=== PATIENT | male | born 1930 | race Caucasian/White ===

== ENCOUNTER 2016-04-06 16:30 | Emergency (ER) | payer MEDICARE, OTHER ==
[2016-04-06 16:42] VITALS: BP 154/90
[2016-04-06] MEDS ORDERED: NS 0.9% 1000 ML* 1,000 ML IV SCH (17:15)
[2016-04-06 17:28] LABS: Hematocrit 33 % (42-52); Mean Corpuscular HGB Conc 33 g/dl (31-36); Mean Corpuscular Hemoglobin 33 pg (27-31); Mean Corpuscular Volume 99 fL (80-94); Mean Platelet Volume 8 um3 (7.4-10.4); Red Blood Count 3.34 10^6/ul (4.0-5.4); Red Cell Distribution Width 16 % (10.5-15); White Blood Count 4.2 10^3/ul (3.5-10.8)
--- NOTE | 2016-04-06 17:45 | RAD ---
Indication: Fall with loss of consciousness, head injury. CT of the brain was performed without IV contrast. Comparison is made with previous exam dated October 30, 2013. Ventricular structures are midline. No midline shift is noted. Central and cortical atrophy is noted. There is no evidence of intracranial mass or hemorrhage. No other high or low density lesions are identified. The bony calvaria demonstrates mastoid air cells and paranasal sinuses to be unremarkable. Scalp hematoma is noted over the right frontal area. IMPRESSION: NO INTRACRANIAL MASS OR HEMORRHAGE IS NOTED.??RIGHT FRONTAL SCALP HEMATOMA IS NOTED. NO UNDERLYING BONY FRACTURE IS NOTED.??
[2016-04-06 17:55] LABS: Albumin 3.9 g/dL (3.2-5.2); BUN/Creatinine Ratio 36.5 (8-20); C Reactive Protein 8.55 mg/L (< 5.00); EGFR African American 109.7 (>60); EGFR Non-African American 85.3 (>60); Globulin 2.7 g/dL (2-4); Magnesium 2.1 mg/dL (1.9-2.7); Potassium 4.4 mmol/L (3.5-5.0); Total Bilirubin 0.4 mg/dL (0.2-1.0); Total Protein 6.6 g/dL (6.4-8.9); Troponin I 0.04 ng/mL (<0.04)
--- NOTE | 2016-04-06 18:02 | RAD ---
Indication: Neck pain, fall with neck injury. CT of the cervical spine was obtained in the axial plane. Sagittal and coronal reconstructed images were obtained. The skull base demonstrates no fracture. Mastoid air cells are well aerated. C1 ring is intact. There is no evidence of fracture. There are degenerative changes of the atlantoaxial joint. At C2-C3 spondylitic ridge flattens the thecal sac. Right uncovertebral joint hypertrophy narrows the right foramen. Moderate degree of facet arthropathy is noted. At C3-C4 there is degenerative disc disease noted. Spondylitic ridge flattens the thecal sac. There is right uncovertebral joint hypertrophy with right facet arthropathy resulting in severe foraminal stenosis at the right C3-C4 level. At C4-C5 there is degenerative disc disease with minimal spondylitic ridge. Again noted is right uncovertebral joint hypertrophy with right facet arthropathy resulting in moderate to severe right foraminal stenosis. At C5-C6 spondylitic ridge flattens the thecal sac. Facet arthropathy is noted. No central foraminal stenosis is noted. At C6-C7 spondylitic ridge with facet arthropathy is noted. No foraminal stenosis is noted. At C7-T1 no disc protrusion is identified. Moderate degree of facet arthropathy is noted. Bridging syndesmophytes are noted C4-C5, C5-C6, C6-C7 and C7-T1. The lung apices are otherwise unremarkable. IMPRESSION: MULTILEVEL DEGENERATIVE DISC DISEASE OF THE CERVICAL SPINE. RIGHT FORAMINAL STENOSIS IS NOTED AT C2-C3, C3-C4 DUE TO UNCOVERTEBRAL JOINT HYPERTROPHY AND MARKED RIGHT SIDED FACET ARTHROPATHY AT THESE LEVELS. BRIDGING SYNDESMOPHYTES ARE NOTED FROM C4-C5, C5-C6, C6-C7 AND C7-T1.
--- NOTE | 2016-04-06 18:07 | RAD ---
Indication: Elbow injury. 4 views of the elbow demonstrates marked soft tissue swelling in the medial aspect of the elbow joint. There is a joint effusion noted. There is likely a avulsion from the left are not process. Adjacent bony fragment is noted along the lateral epicondyles as well. IMPRESSION: MARKED SOFT TISSUE SWELLING MEDIALLY AT THE ELBOW JOINT. A JOINT EFFUSION IS NOTED WITH ANTERIOR FAT PAD SIGN. THERE IS LIKELY AVULSION FROM THE OLECRANON PROCESS.
--- NOTE | 2016-04-06 18:08 | RAD ---
Indication: Fall, chest injury. 2 views of the chest demonstrates patient to be status post transsternal thoracotomy. There is cardiomegaly noted. Hyperinflated lung everett are noted. No definite pneumonia is identified. IMPRESSION: No active cardiopulmonary disease is noted. No changes noted since March 06, 2015.
[2016-04-06 18:12] LABS: TSH (Thyroid Stimulating Horm) 1.4 mcIU/mL (0.34-5.60)
--- NOTE | 2016-04-06 20:19 | ED ---
Eufemia To Anna, scribed for Yair Duffy MD on 04/06/16 at 1730 . Syncope/Near Syncope - HPI Summary HPI Summary: Patient is an 85 y/o male BIBA to [facility] following the sudden onset of a syncopal episode that occurred at 16:00 today. The patient was walking into his orthopedic doctor's office and fell flat on his face onto a hard floor. He didn t trip. He remembers waking but not falling. LOC was 30 seconds. He was alert upon arrival of EMS. He has bruising and a laceration on his forehead and pain in his right elbow. He reports no other pain. Denies palpitations. He has been experiencing tightness in his chest every day for years. Hx of triple bypass surgery. He has had insomnia lately and hasnt been sleeping much. Some of his medications have side effects of lightheadedness and dizziness. He had a glass of wine to drink today but hasnt had anything else. He is not on blood thinners besides ibuprofen. Hx is significant for CHF. He typically uses a walker to ambulate. - History Of Current Complaint Chief Complaint: EDSyncope Time Seen by Provider: 04/06/16 16:47 Hx Obtained From: Patient, Family/Organizational Effectiveness Consultant - accompanied by , EMS Onset/Duration: Sudden Onset, Resolved Timing: Seconds Context: Witnessed Activity At Onset: Other - walking Associated Head Trauma: No Alleviating Factor(s): Spontaneous Resolution - Allergies/Home Medications Allergies/Adverse Reactions: Allergies Allergy/AdvReac Type Severity Reaction Status Date / Time Penicillins AdvReac Intermediate Rash Verified 10/03/15 09:35 PMH/Surg Hx/FS Hx/Imm Hx Previously Healthy: No Endocrine/Hematology History: Reports: Hx Anemia, Hx Unexplained Bleeding Denies: Hx Anticoagulant Therapy, Hx Diabetes, Hx Thyroid Disease Cardiovascular History: Reports: Hx Angina, Hx Congestive Heart Failure, Hx Coronary Artery Disease, Hx Deep Vein Thrombosis - right leg, Hx Hypercholesterolemia, Hx Hypertension, Hx Syncope, Hx Valvular Heart Disease, Other Cardiovascular Problems/Disorders - Coronary Bypass Surgery Denies: Hx Myocardial Infarction, Hx Pacemaker/ICD Respiratory History: Reports: Hx Asthma, Hx Sleep Apnea, Other Respiratory Problems/Disorders - Deviated Septum GI History: Denies: Hx Gall Bladder Disease, Hx Gastrointestinal Bleed, Hx Ulcer, Hx Urosepsis History: Reports: Hx Acute Renal Failure - current dx, Hx Benign Prostatic Hyperplasia Denies: Hx Kidney Stones, Hx Renal Disease Musculoskeletal History: Reports: Hx Arthritis, Hx Back Problems Sensory History: Reports: Hx Cataracts - HAS HAD SURGERY, Hx Contacts or Glasses , Hx Glaucoma - RIGHT EYE, Hx Deafness - left ear, Hx Hearing Aid - RIGHT EAR, Hx Hearing Problem Opthamlomology History: Reports: Hx Cataracts - HAS HAD SURGERY, Hx Contacts or Glasses, Hx Glaucoma - RIGHT EYE Neurological History: Reports: Hx Seizures - only had one in 1974, 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, Hx Transient Ischemic Attacks (TIA), Other Neuro Impairments/Disorders - intracranial tumor Psychiatric History: Reports: Hx Depression Denies: Hx Panic Disorder - Cancer History Cancer Type, Location and Year: Prostate cancer - Surgical History Surgery Procedure, Year, and Place: Septoplasty, Cataract, 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, Spinal Surgery, Tongue Cancer, Skin Cancer on Forehead , Coronary Bypass Surgery 2007, bilateral hips - Immunization History Date of Tetanus Vaccine: unk Infectious Disease History: No Infectious Disease History: Denies: Traveled Outside the [place] in Last 30 Days - Family History Known Family History: Positive: Other - Hx manic depression in father - Social History Occupation: Retired Lives: With Family Alcohol Use: Daily Hx Substance Use: No Substance Use Type: Reports: None Smoking Status (MU): Former Smoker Type: Cigarettes Have You Smoked in the Last Year: No Review of Systems Positive: Other - recent insomnia Positive: Chest Pain. Negative: Palpitations Positive: Bruising, Other - laceration Positive: Syncope All Other Systems Reviewed And Are Negative: Yes Physical Exam Triage Information Reviewed: Yes Vital Signs On Initial Exam: Initial Vitals Temp Pulse Resp BP Pulse Ox 98.2 F 65 14 154/90 96 04/06/16 16:39 04/06/16 16:39 04/06/16 16:39 04/06/16 16:39 04/06/16 16:39 Vital Signs Reviewed: Yes Appearance: Positive: Well-Appearing, No Pain Distress Skin: Positive: Warm, Skin Color Reflects Adequate Perfusion, Dry, Other - Laceration above right eye that extends across the bridge of his nose. Ecchymosis across bridge of nose and on right elbow. Skin turgor abnormal. Head/Face: Positive: Normal Head/Face Inspection Eyes: Positive: EOMI, TRAY ENT: Positive: Other - Dry mucous membranes Neck: Positive: Supple, Nontender, No Lymphadenopathy Respiratory/Lung Sounds: Positive: Decreased Breath Sounds - Right lower lung Cardiovascular: Positive: RRR Abdomen Description: Positive: Nontender, Soft Bowel Sounds: Positive: Present Male Genital Exam: Positive: other - Catheter Musculoskeletal: Positive: Normal, Strength/ROM Intact Neurological: Positive: Normal, Sensory/Motor Intact, Alert, Oriented to Person Place, Time Psychiatric: Positive: Affect/Mood Appropriate Procedures - Laceration/Wound Repair 1 Location: head Description: Linear Anesthesia: Local, Lido, Epi Length, Depth and Shape: 3 cm length, .5 cm depth, .2 cm width Betadine Prep?: Yes Irrigated w/ Saline (ccs): 100 Laceration/Wound Explored: clean Closure: Single Layer Suture Type: Prolene - 5.0 Number of Sutures: 5 Layer Closure?: No Sterile Dressing Applied?: Yes Diagnostics - Vital Signs Vital Signs Temp Pulse Resp BP Pulse Ox 04/06/16 16:39 98.2 F 65 14 154/90 96 - Laboratory Lab Results: Lab Results 04/06/16 04/06/16 04/06/16 Range/Units 17:00 17:00 17:00 WBC 4.2 (3.5-10.8) 10^3/ul RBC 3.34 L (4.0-5.4) 10^6/ul Hgb 11.0 L (14.0-18.0) g/dl Hct 33 L (42-52) % MCV 99 H (80-94) fL MCH 33 H (27-31) pg MCHC 33 (31-36) g/dl RDW 16 H (10.5-15) % Plt Count 130 L (150-450) 10^3/ul MPV 8 (7.4-10.4) um3 Neut % (Auto) 70.6 (38-83) % Lymph % (Auto) 16.4 L (25-47) % Summers % (Auto) 10.5 H (1-9) % Eos % (Auto) 2.0 (0-6) % Baso % (Auto) 0.5 (0-2) % Absolute Neuts (auto) 3.0 (1.5-7.7) 10^3/ul Absolute Lymphs (auto) 0.7 L (1.0-4.8) 10^3/ul Absolute Monos (auto) 0.4 (0-0.8) 10^3/ul Absolute Eos (auto) 0.1 (0-0.6) 10^3/ul Absolute Basos (auto) 0 (0-0.2) 10^3/ul Absolute Nucleated RBC 0.01 10^3/ul Nucleated RBC % 0.1 INR (Anticoag Therapy) 1.00 (0.89-1.11) APTT 26.3 (26.0-36.3) seconds Sodium 135 (133-145) mmol/L Potassium 4.4 (3.5-5.0) mmol/L Chloride 101 (101-111) mmol/L Carbon Dioxide 28 (22-32) mmol/L Anion Gap 6 (2-11) mmol/L BUN 31 H (6-24) mg/dL Creatinine 0.85 (0.67-1.17) mg/dL Est GFR ( Amer) 109.7 (>60) Est GFR (Non-Af Amer) 85.3 (>60) BUN/Creatinine Ratio 36.5 H (8-20) Glucose 116 H (70-100) mg/dL Lactic Acid (0.5-2.0) mmol/L Calcium 9.0 (8.6-10.3) mg/dL Magnesium 2.1 (1.9-2.7) mg/dL Total Bilirubin 0.40 (0.2-1.0) mg/dL AST 24 (13-39) U/L ALT 18 (7-52) U/L Alkaline Phosphatase 182 H (34-104) U/L Total Creatine Kinase 88 (10-223) U/L CK-MB (CK-2) 3.3 (0.6-6.3) ng/mL Troponin I 0.04 H* (<0.04) ng/mL C-Reactive Protein 8.55 H (< 5.00) mg/L B-Natriuretic Peptide ( - 100) pg/mL Total Protein 6.6 (6.4-8.9) g/dL Albumin 3.9 (3.2-5.2) g/dL Globulin 2.7 (2-4) g/dL Albumin/Globulin Ratio 1.4 (1-3) TSH 1.40 (0.34-5.60) mcIU/mL 04/06/16 04/06/16 Range/Units 17:00 17:00 WBC (3.5-10.8) 10^3/ul RBC (4.0-5.4) 10^6/ul Hgb (14.0-18.0) g/dl Hct (42-52) % MCV (80-94) fL MCH (27-31) pg MCHC (31-36) g/dl RDW (10.5-15) % Plt Count (150-450) 10^3/ul MPV (7.4-10.4) um3 Neut % (Auto) (38-83) % Lymph % (Auto) (25-47) % Summers % (Auto) (1-9) % Eos % (Auto) (0-6) % Baso % (Auto) (0-2) % Absolute Neuts (auto) (1.5-7.7) 10^3/ul Absolute Lymphs (auto) (1.0-4.8) 10^3/ul Absolute Monos (auto) (0-0.8) 10^3/ul Absolute Eos (auto) (0-0.6) 10^3/ul Absolute Basos (auto) (0-0.2) 10^3/ul Absolute Nucleated RBC 10^3/ul Nucleated RBC % INR (Anticoag Therapy) (0.89-1.11) APTT (26.0-36.3) seconds Sodium (133-145) mmol/L Potassium (3.5-5.0) mmol/L Chloride (101-111) mmol/L Carbon Dioxide (22-32) mmol/L Anion Gap (2-11) mmol/L BUN (6-24) mg/dL Creatinine (0.67-1.17) mg/dL Est GFR ( Amer) (>60) Est GFR (Non-Af Amer) (>60) BUN/Creatinine Ratio (8-20) Glucose (70-100) mg/dL Lactic Acid 1.0 (0.5-2.0) mmol/L Calcium (8.6-10.3) mg/dL Magnesium (1.9-2.7) mg/dL Total Bilirubin (0.2-1.0) mg/dL AST (13-39) U/L ALT (7-52) U/L Alkaline Phosphatase (34-104) U/L Total Creatine Kinase (10-223) U/L CK-MB (CK-2) (0.6-6.3) ng/mL Troponin I (<0.04) ng/mL C-Reactive Protein (< 5.00) mg/L B-Natriuretic Peptide 434 H ( - 100) pg/mL Total Protein (6.4-8.9) g/dL Albumin (3.2-5.2) g/dL Globulin (2-4) g/dL Albumin/Globulin Ratio (1-3) TSH (0.34-5.60) mcIU/mL Result Diagrams: 04/06/16 17:00 04/06/16 17:00 Lab Statement: Any lab studies that have been ordered have been reviewed, and results considered in the medical decision making process. - Radiology Elbow XR Xray Interpretation: Positive (See Comments) Radiology Interpretation Completed By: Radiologist - IMPRESSION: MARKED SOFT TISSUE SWELLING MEDIALLY AT THE ELBOW JOINT. A JOINT EFFUSION IS NOTED WITH ANTERIOR FAT PAD SIGN. THERE IS LIKELY AVULSION FROM THE OLECRANON PROCESS. CXR Xray Interpretation: No Acute Changes Radiology Interpretation Completed By: Radiologist - IMPRESSION: No active cardiopulmonary disease is noted. No changes noted since March 06, 2015. - CT C-Spine CT CT Interpretation: Positive (See Comments) CT Interpretation Completed By: Radiologist - IMPRESSION: MULTILEVEL DEGENERATIVE DISC DISEASE OF THE CERVICAL SPINE. RIGHT FORAMINAL STENOSIS IS NOTED AT C2-C3, C3-C4 DUE TO UNCOVERTEBRAL JOINT HYPERTROPHY AND MARKED RIGHT SIDED FACET ARTHROPATHY AT THESE LEVELS. BRIDGING SYNDESMOPHYTES ARE NOTED FROM C4-C5, C5-C6, C6-C7 AND C7-T1. Brain CT CT Interpretation: Positive (See Comments) CT Interpretation Completed By: Radiologist - IMPRESSION: NO INTRACRANIAL MASS OR HEMORRHAGE IS NOTED. RIGHT FRONTAL SCALP HEMATOMA IS NOTED. NO UNDERLYING BONY FRACTURE IS NOTED. - EKG 19:14 Cardiac Rate: NL - 80 bpm EKG Rhythm: Sinus Rhythm EKG Interpretation: L. atrial enlargement, ST depressions in V3-V6 also seen in 05/14/2015 EKG Course/Dx Assessment/Plan: FACIAL LACERATION SUTURED. PATIENT DENIED CHEST PAIN/SOB/ PALPITATIONS PRIOR TO SYNCOPAL EPISODE. RESULTS DISCUSSED WITH PATIENT/. PATIENT WISHES TO GO HOME. AMBULATED IN ED. DISCHARGE HOME STABLE. - Diagnoses Provider Diagnoses: Syncope, Head injury, Laceration of face, Elbow fracture Discharge - Discharge Plan Condition: Stable Disposition: HOME Patient Education Materials: Elbow Fracture in Adults (ED), Syncope (ED), How to Use a Sling (GEN), Head Injury (ED), Facial Laceration (ED) Referrals: [facility] [Outside] Juice Razo MD [Medical Doctor] - Kenan Botello MD [Primary Care Provider] - Additional Instructions: FOLLOW UP WITH YOUR DOCTOR FOR YOUR SYNCOPAL EPISODE. FOLLOW UP WITH ORTHOPEDICS FOR YOUR ELBOW INJURY. SUTURES OUT IN 5-7 DAYS. RETURN TO THE EMERGENCY DEPARTMENT FOR ANY WORSENING OF YOUR CONDITION OR QUESTIONS OR CONCERNS. The documentation as recorded by the Eufemia jiang Anna accurately reflects the service I personally performed and the decisions made by me, Yair Duffy MD.
== END 2016-04-06 20:35 | disposition home or self-care (01) ==
LOC: ED 16:30
DX: S09.90XA Unspecified injury of head, initial encounter (principal); S42.409A Unspecified fracture of lower end of unspecified humerus, initial encounter for closed fracture; S01.81XA Laceration without foreign body of other part of head, initial encounter; R42 Dizziness and giddiness; Z87.891 Personal history of nicotine dependence; R07.9 Chest pain, unspecified; R55 Syncope and collapse; W19.XXXA Unspecified fall, initial encounter; Y93.9 Activity, unspecified; Y92.9 Unspecified place or not applicable; Y99.9 Unspecified external cause status
CPT/HCPCS: 36415; 70450; 71020; 72125; 80053; 82550; 82553; 83605; 83735; 83880; 84443; 84484; 85025; 85610; 85730; 86140; 93005; 99282

== ENCOUNTER 2016-04-12 22:32 | Emergency (ER) | payer MEDICARE, OTHER ==
--- NOTE | 2016-04-13 01:40 | ED ---
Apollo To Adam, scribed for Yair Duffy MD on 04/13/16 at 0000 . Upper Extremity Pain - HPI Summary HPI Summary: Pt is an 85 year old male presenting with bleeding from the RUE since falling 1 week ago. Pt fractured his right elbow when he fell on 04/06 and he c/o continuing but gradually decreasing pain. He came to the ED tonight because his arm began bleeding in 2 places. He presents with edema and ecchymosis in the RUE and eschar in the LUE. Pt also c/o nasal congestion which is causing him to have difficulty breathing. PMHx of CHF. He takes ASA daily. - History of Current Complaint Chief Complaint: EDExtremityUpper Stated Complaint: SWOLLEN RT ARM Time Seen by Provider: 04/12/16 23:23 Hx Obtained From: Patient Mechanism Of Injury: Fall From A Standing Position Onset/Duration: Started Days Ago, Traumatic, Still Present Timing: Constant Severity Initially: Moderate Severity Currently: Moderate Pain Location: Elbow - Right Aggravating Factor(s): Movement Alleviating Factor(s): Nothing Associated Signs & Symptoms: Positive: Swelling, Bruising, SOB, Other - Bleeding from RUE - Allergies/Home Medications Allergies/Adverse Reactions: Allergies Allergy/AdvReac Type Severity Reaction Status Date / Time Penicillins AdvReac Intermediate Rash Verified 10/03/15 09:35 PMH/Surg Hx/FS Hx/Imm Hx Endocrine/Hematology History: Reports: Hx Anemia, Hx Unexplained Bleeding Denies: Hx Anticoagulant Therapy, Hx Diabetes, Hx Thyroid Disease Cardiovascular History: Reports: Hx Angina, Hx Congestive Heart Failure, Hx Coronary Artery Disease, Hx Deep Vein Thrombosis - right leg, Hx Hypercholesterolemia, Hx Hypertension, Hx Syncope, Hx Valvular Heart Disease, Other Cardiovascular Problems/Disorders - Coronary Bypass Surgery Denies: Hx Myocardial Infarction, Hx Pacemaker/ICD Respiratory History: Reports: Hx Asthma, Hx Sleep Apnea, Other Respiratory Problems/Disorders - Deviated Septum GI History: Denies: Hx Gall Bladder Disease, Hx Gastrointestinal Bleed, Hx Ulcer, Hx Urosepsis History: Reports: Hx Acute Renal Failure - current dx, Hx Benign Prostatic Hyperplasia Denies: Hx Kidney Stones, Hx Renal Disease Musculoskeletal History: Reports: Hx Arthritis, Hx Back Problems Sensory History: Reports: Hx Cataracts - HAS HAD SURGERY, Hx Contacts or Glasses , Hx Glaucoma - RIGHT EYE, Hx Deafness - left ear, Hx Hearing Aid - RIGHT EAR, Hx Hearing Problem Opthamlomology History: Reports: Hx Cataracts - HAS HAD SURGERY, Hx Contacts or Glasses, Hx Glaucoma - RIGHT EYE Neurological History: Reports: Hx Seizures - only had one in 1974, 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, Hx Transient Ischemic Attacks (TIA), Other Neuro Impairments/Disorders - intracranial tumor Psychiatric History: Reports: Hx Depression Denies: Hx Panic Disorder - Cancer History Cancer Type, Location and Year: Prostate cancer - Surgical History Surgery Procedure, Year, and Place: Septoplasty, Cataract, 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, Spinal Surgery, Tongue Cancer, Skin Cancer on Forehead , Coronary Bypass Surgery 2007, bilateral hips - Immunization History Date of Tetanus Vaccine: unk Infectious Disease History: No Infectious Disease History: Denies: Traveled Outside the [place] in Last 30 Days - Family History Known Family History: Positive: Other - Hx manic depression in father - Social History Occupation: Retired Lives: With Family - Alcohol Use: Daily Hx Substance Use: No Substance Use Type: Reports: None Hx Tobacco Use: Yes Smoking Status (MU): Former Smoker Type: Cigarettes Have You Smoked in the Last Year: No Review of Systems Positive: Nasal Discharge - Congestion Positive: Shortness Of Breath - Due to nasal congestion Positive: Arthralgia - Right elbow, Edema - RUE Positive: Bruising - RUE, Other - Bleeding from RUE in 2 places All Other Systems Reviewed And Are Negative: Yes Physical Exam Triage Information Reviewed: Yes Vital Signs On Initial Exam: Initial Vitals Temp Pulse Resp BP Pulse Ox 97.4 F 95 16 171/79 99 04/12/16 22:38 04/12/16 22:38 04/12/16 22:38 04/12/16 22:38 04/12/16 22:38 Vital Signs Reviewed: Yes Appearance: Positive: Well-Appearing, No Pain Distress Skin: Positive: Warm, Skin Color Reflects Adequate Perfusion, Dry, Other - Eschar on left arm. Ecchymosis of RUE. Head/Face: Positive: Normal Head/Face Inspection Eyes: Positive: EOMI, TRAY ENT: Positive: Normal ENT inspection Neck: Positive: Supple, Nontender Respiratory/Lung Sounds: Positive: Clear to Auscultation, Breath Sounds Present Cardiovascular: Positive: RRR Abdomen Description: Positive: Nontender, Soft Bowel Sounds: Positive: Present Musculoskeletal: Positive: Normal, Strength/ROM Intact, Edema Right - RUE Neurological: Positive: Normal, Sensory/Motor Intact, Alert, Oriented to Person Place, Time Psychiatric: Positive: Affect/Mood Appropriate Diagnostics - Vital Signs Vital Signs Temp Pulse Resp BP Pulse Ox 04/12/16 22:38 97.4 F 95 16 171/79 99 - Laboratory Lab Statement: Any lab studies that have been ordered have been reviewed, and results considered in the medical decision making process. - Additional Comments Diagnostic Additional Comments: Venous Doppler Study - Negative Re-Evaluation - Re-Evaluation First Eval Re-Evaluation Time: 01:36 - Discussed results of venous doppler study. Patient is doing well. He will be discharged. Course/Dx - Course Assessment/Plan: DISCUSSED RESULTS OF US WITH PATIENT/. PATIENT HAS BEEN USING HIS RIGHT ARM FOR AMBULTION. OTHERWISE HE HAS INCREASED RISK OF FALLING. PATIENT/ AGREED TO CALL ORTHOPEDICS FOR F/U TODAY. DISCHARGE HOME STABLE. - Diagnoses Provider Diagnoses: Arm edema, Elbow fracture Discharge - Discharge Plan Condition: Stable Disposition: HOME Patient Education Materials: Edema (ED), Elbow Fracture in Adults (ED) Referrals: Kenan Botello MD [Primary Care Provider] - Additional Instructions: FOLLOW UP WITH ORTHOPEDICS, DR MCGOWAN OR ONE OF HIS PARTNERS. KEEP YOUR RIGHT ARM ELEVATED MUCH POSSIBLE. RETURN TO THE EMERGENCY DEPARTMENT FOR ANY WORSENING OF YOUR CONDITION OR QUESTIONS OR CONCERNS. The documentation as recorded by the Apollo jiang Adam accurately reflects the service I personally performed and the decisions made by me, Yair Duffy MD.
[2016-04-13 02:26] VITALS: BP 144/62
--- NOTE | 2016-04-13 07:52 | RAD ---
INDICATION: Swelling right upper extremity. COMPARISON: There are no prior studies available for comparison. TECHNIQUE: Multiple real-time, color flow and Doppler tracings of the right upper extremity were obtained. FINDINGS: The axillary, brachial, basilic and cephalic veins all demonstrate normal compressibility, augmentation with compression and phasic response with respiration. The radial and ulnar arteries demonstrate normal compressibility. The subclavian and internal jugular veins also demonstrate normal color flow imaging and phasic response with respiration. There is soft tissue swelling noted in the antecubital fossa and forearm region. IMPRESSION: NO EVIDENCE FOR DEEP VENOUS THROMBOSIS.
== END 2016-04-13 02:22 | disposition home or self-care (01) ==
LOC: ED 22:32
DX: R60.9 Edema, unspecified (principal); S42.401A Unspecified fracture of lower end of right humerus, initial encounter for closed fracture; R09.81 Nasal congestion; I50.9 Heart failure, unspecified; Z79.82 Long term (current) use of aspirin; Z88.0 Allergy status to penicillin; Z86.73 Personal history of transient ischemic attack (TIA), and cerebral infarction without residual deficits; Z87.891 Personal history of nicotine dependence; W19.XXXA Unspecified fall, initial encounter; Y93.9 Activity, unspecified; Y92.9 Unspecified place or not applicable
CPT/HCPCS: 99282

== ENCOUNTER 2016-04-13 14:36 | Emergency (ER) | payer MEDICARE, OTHER ==
[2016-04-13 14:46] VITALS: BP 123/49
== END 2016-04-13 16:08 | disposition left against medical advice (07) ==
LOC: ED 14:36
DX: M79.89 Other specified soft tissue disorders (principal); Z53.21 Procedure and treatment not carried out due to patient leaving prior to being seen by health care provider

== ENCOUNTER → 2016-10-22 03:37 | Emergency (ER) | payer MEDICARE, OTHER ==
--- NOTE | 2016-10-22 04:48 | ED ---
Angeles To Alfonso, scribed for Alfonso Villareal on 10/22/16 at 0414 . Skin Complaint - HPI Summary HPI Summary: This patient is an 86 year old M BIBA to [facility] with a chief complaint of scalp bleeding since 0200 this morning. The bleeding began after application of his C- Pap mask in sleep. Pt rates the pain 0/10 in severity. Symptoms aggravated by application of his C-Pap mask and alleviated by nothing. Patient had a recent skin biopsy at the bleeding site. PMHx of prostate cancer, HTN, CAD, and CHF. - History of Current Complaint Chief Complaint: EDLacSutureRecheck Stated Complaint: BLEED FROM HEAD Hx Obtained From: Patient Onset/Duration: Started Hours Ago - 0200 this morning, Still Present Timing: Constant Onset Severity: Mild Current Severity: Mild Pain Intensity: 0 Pain Scale Used: 0-10 Numeric Skin Location: Other: - Scalp Aggravating Symptom(s): Other: - application of his C-Pap mask Alleviating Symptom(s): Nothing - Additional Pertinent History Primary Care Physician: WILLI - Allergy/Home Medications Allergies/Adverse Reactions: Allergies Allergy/AdvReac Type Severity Reaction Status Date / Time Penicillins AdvReac Intermediate Rash Verified 10/03/15 09:35 PMH/Surg Hx/FS Hx/Imm Hx Endocrine/Hematology History: Reports: Hx Anemia, Hx Unexplained Bleeding Denies: Hx Anticoagulant Therapy, Hx Diabetes, Hx Thyroid Disease Cardiovascular History: Reports: Hx Angina, Hx Congestive Heart Failure, Hx Coronary Artery Disease, Hx Deep Vein Thrombosis - right leg, Hx Hypercholesterolemia, Hx Hypertension, Hx Syncope, Hx Valvular Heart Disease, Other Cardiovascular Problems/Disorders - Coronary Bypass Surgery Denies: Hx Myocardial Infarction, Hx Pacemaker/ICD Respiratory History: Reports: Hx Asthma, Hx Sleep Apnea, Other Respiratory Problems/Disorders - Deviated Septum GI History: Denies: Hx Gall Bladder Disease, Hx Gastrointestinal Bleed, Hx Ulcer, Hx Urosepsis History: Reports: Hx Acute Renal Failure - current dx, Hx Benign Prostatic Hyperplasia Denies: Hx Kidney Stones, Hx Renal Disease Musculoskeletal History: Reports: Hx Arthritis, Hx Back Problems Sensory History: Reports: Hx Cataracts - HAS HAD SURGERY, Hx Contacts or Glasses , Hx Glaucoma - RIGHT EYE, Hx Deafness - left ear, Hx Hearing Aid - RIGHT EAR, Hx Hearing Problem Opthamlomology History: Reports: Hx Cataracts - HAS HAD SURGERY, Hx Contacts or Glasses, Hx Glaucoma - RIGHT EYE Neurological History: Reports: Hx Seizures - only had one in 1974, 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, Hx Transient Ischemic Attacks (TIA), Other Neuro Impairments/Disorders - intracranial tumor Psychiatric History: Reports: Hx Depression Denies: Hx Panic Disorder - Cancer History Cancer Type, Location and Year: Prostate cancer - Surgical History Surgery Procedure, Year, and Place: Septoplasty, Cataract, 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, Spinal Surgery, Tongue Cancer, Skin Cancer on Forehead , Coronary Bypass Surgery 2007, bilateral hips - Immunization History Date of Tetanus Vaccine: unk Infectious Disease History: No Infectious Disease History: Denies: Traveled Outside the [place] in Last 30 Days - Family History Known Family History: Positive: Other - Hx manic depression in father - Social History Alcohol Use: Daily Hx Substance Use: No Substance Use Type: Reports: None Hx Tobacco Use: Yes Smoking Status (MU): Former Smoker Type: Cigarettes Have You Smoked in the Last Year: No Review of Systems Negative: Fever Positive: Other - Scalp bleeding All Other Systems Reviewed And Are Negative: Yes Physical Exam Triage Information Reviewed: Yes Vital Signs On Initial Exam: Initial Vitals Temp Pulse Resp BP Pulse Ox 97.1 F 70 16 184/88 96 10/22/16 03:45 10/22/16 03:45 10/22/16 03:45 10/22/16 03:45 10/22/16 03:45 Vital Signs Reviewed: Yes Appearance: Positive: Well-Appearing, No Pain Distress Skin: Positive: Warm, Skin Color Reflects Adequate Perfusion, Other - scalp bleeding at skin biopsy residential support worker/Face: Positive: Normal Head/Face Inspection Eyes: Positive: EOMI, TRAY ENT: Positive: Normal ENT inspection Neck: Positive: Supple, Nontender Respiratory/Lung Sounds: Positive: Clear to Auscultation, Breath Sounds Present Cardiovascular: Positive: RRR, Pulses are Symmetrical in both Upper and Lower Extremities Abdomen Description: Positive: Nontender, Soft Bowel Sounds: Positive: Present Musculoskeletal: Positive: Strength/ROM Intact, Other - Mild pedal edema Neurological: Positive: Normal, Sensory/Motor Intact, Alert, Oriented to Person Place, Time Diagnostics - Vital Signs Vital Signs Temp Pulse Resp BP Pulse Ox 10/22/16 04:00 78 18 163/81 96 10/22/16 03:45 97.1 F 70 16 184/88 96 - Laboratory Lab Statement: Any lab studies that have been ordered have been reviewed, and results considered in the medical decision making process. Course/Dx - Course Assessment/Plan: 86 year old Jacques DOVE to the ED with a CC of scalp bleeding since 0200 this morning. The bleeding began after application of his C-Pap mask in sleep. Patient had a recent skin biopsy at the bleeding site. Bleeding was stopped with surgicell and dressing was applied. Patient will be discharged with follow up from PCP. Pt is agreeable with this plan. - Diagnoses Provider Diagnoses: Post-operative hemorrhage Discharge - Discharge Plan Condition: Stable Disposition: HOME Patient Education Materials: Postoperative Bleeding (ED) Referrals: Kenan Botello MD [Primary Care Provider] - 3 Days The documentation as recorded by the [place] jiang Alfonso accurately reflects the service I personally performed and the decisions made by Mono guerra Emmanuel.
[2016-10-22 05:12] VITALS: BP 149/78
== END | disposition home or self-care (01) ==
LOC: ED 03:37
DX: L76.22 Postprocedural hemorrhage of skin and subcutaneous tissue following other procedure (principal); Z86.79 Personal history of other diseases of the circulatory system; Z85.46 Personal history of malignant neoplasm of prostate; Z87.891 Personal history of nicotine dependence
CPT/HCPCS: 99282